=== PATIENT | female | born 1995 ===

== ENCOUNTER 2019-01-23 12:12 | Emergency (ER) | payer OTHER, BC ==
[2019-01-23 12:31] VITALS: BP 129/85
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
[2019-01-23] MEDS ORDERED: IBUPROFEN 800 MG TAB PO ONE (13:34)
[2019-01-23] MEDS ORDERED: CYCLOBENZAPRINE 10 MG TAB PO ONE (13:34)
== END 2019-01-23 13:58 | disposition home or self-care (01) ==
LOC: ED 12:12 → EDBD 12:12 → ED 13:58
DX: S16.1XXA Strain of muscle, fascia and tendon at neck level, initial encounter (principal); S39.012A Strain of muscle, fascia and tendon of lower back, initial encounter; R07.89 Other chest pain; V49.59XA Passenger injured in collision with other motor vehicles in traffic accident, initial encounter; Y93.89 Activity, other specified; Y92.410 Unspecified street and highway as the place of occurrence of the external cause; Y99.8 Other external cause status